=== PATIENT | female | born 1975 | race Caucasian/White ===

== ENCOUNTER 2017-03-18 12:10 | Inpatient (IN) | payer BC ==
[~2017-03-18] VITALS: Ht 165.1 cm; Wt 71.7 kg
[2017-03-18 14:24] VITALS: BP 101/65; RESP 18
[2017-03-18] MEDS ORDERED: HYDROCODONE/APAP (5/325) TAB PO PRN (16:30)
[2017-03-18] MEDS ORDERED: DIPHENHYDRAMINE 25 MG CAP PO PRN (16:30)
[2017-03-18] MEDS ORDERED: ZOLPIDEM 5 MG TAB PO PRN (16:30)
[2017-03-18] MEDS ORDERED: ACETAMINOPHEN 325 MG TAB PO PRN (16:30)
[2017-03-18] MEDS ORDERED: NACL 0.9% 3 ML SYG IV SCH (16:30)
[2017-03-18] MEDS ORDERED: ONDANSETRON 4 MG INJ IV PRN (16:30)
[2017-03-18] MEDS ORDERED: LORAZEPAM 0.5 MG TAB PO PRN (16:30)
[2017-03-18] MEDS ORDERED: HYDROmorphONE 0.5 MG/0.5 ML SYG IV PRN (16:30)
--- NOTE | 2017-03-18 16:39 | RADRPT ---
AMENDMENT: 03/18/2017 5:05:04 PM Stefano Downs M.d In the first sentence of the Findings section, the phrase "by the prominent" should read as "slightl y prominent." PROCEDURE: XR portable chest CLINICAL INDICATION: Chest pain TECHNIQUE: Portable semi upright chest radiograph COMPARISON: None available FINDINGS: By the prominent right heart border, but this could be within normal limits. The cardiac silhouette, mediastinum, and pulmonary giirsh are otherwise unremarkable. Pulmonary vasculature is within normal limits. The lung volumes are within normal limits. The visualized pleural surfaces are unremarkable. The trang g parenchyma is unremarkable. IMPRESSION: 1. Slightly prominent right heart border may be within normal limits. Compare to prior correspondin g imaging studies. RPTAT: TT Physician Lencho Date Time Electronically viewed and signed by Physician Lencho on 03/18/2017 17:12 IVANIA/
[2017-03-18] MEDS ORDERED: HYDROmorphONE 2 MG TAB PO PRN (17:00)
[2017-03-18] MEDS ORDERED: KETOROLAC 15 MG INJ IV PRN (17:00)
[2017-03-18 17:06] LABS: BASOPHIL # 0.1 10^3/ul (0.0-0.1); BASOPHILS % 0.5 % (0.0-2.0); EOSINOPHILS # 0.2 10^3/ul (0.0-0.5); EOSINOPHILS % 1.9 % (0.0-7.0); HEMATOCRIT 38.5 % (37.0-47.0); LYMPHOCYTES # 2.2 10^3/ul (0.8-2.9); LYMPHOCYTES % 20.2 % (15.0-51.0); MEAN CORPUSCULAR HEMOGLOBIN 31.2 pg (29.0-33.0); MEAN CORPUSCULAR HGB CONC 33.8 g/dl (32.0-37.0); MEAN CORPUSCULAR VOLUME 92.3 fl (82.0-101.0); MEAN PLATELET VOLUME 11.7 fl (7.4-10.4); MONOCYTE # 0.6 10^3/ul (0.3-0.9); MONOCYTES % 5.4 % (0.0-11.0); NEUTROPHIL # 7.9 10^3/ul (1.6-7.5); NEUTROPHILS % 71.7 % (39.0-77.0); PLATELET COUNT 187 10^3/UL (140-415); RED BLOOD COUNT 4.17 10^6/ul (4.20-5.40); RED CELL DISTRIBUTION WIDTH 11.8 % (11.5-14.5)
[2017-03-18 17:30] LABS: CALCIUM 8.8 mg/dl (8.4-10.2); CREATININE 0.69 mg/dl (0.44-1.00); POTASSIUM 3.8 mmol/L (3.5-5.1)
[2017-03-18] MEDS: SOD CHLORIDE 0.9% 1,000 ML IV SCH (17:38)
[2017-03-18] MEDS: LEVOFLOXACIN 500MG/D5W (PMX) 100 ML IVPB SCH (17:38)
[2017-03-18 18:34] VITALS: Ht 165.1 cm; Wt 71.7 kg
--- NOTE | 2017-03-18 19:26 | RADRPT ---
Vent Rate: 76 bpm RR Interval: 0 msec WV Interval: 116 msec QRS Duration: 74 msec QT Interval: 394 msec QTC Interval: 443 msec P-R-T [place]: 69 - 30 - 53 degrees Normal sinus rhythm Low voltage QRS Borderline ECG Electronically Signed By: Luis Arboleda [id number]
[2017-03-18 19:32] VITALS: BP 108/55; RESP 18
[2017-03-18 20:27] LABS: ADD UMIC YES; UR ASCORBIC ACID NEGATIVE (NEGATIVE); UR BILIRUBIN (Dip) NEGATIVE (NEGATIVE); UR BLOOD (Dip) 2+ mg/dL (NEGATIVE); UR CLARITY CLEAR (CLEAR); UR COLOR YELLOW (YELLOW); UR GLUCOSE (Dip) NEGATIVE (NEGATIVE); UR KETONES (Dip) NEGATIVE (NEGATIVE); UR LEUKOCYTE ESTERASE (Dip) TRACE Leu/ul (NEGATIVE); UR NITRITE (Dip) NEGATIVE (NEGATIVE); UR RBC 22 /HPF (0-5); UR SPECIFIC GRAVITY (Dip) 1.014 (1.003-1.030); UR SQUAMOUS EPITHELIAL CELL FEW /HPF (FEW); UR TOTAL PROTEIN (Dip) NEGATIVE (NEGATIVE); UR UROBILINOGEN (Dip) NEGATIVE (NEGATIVE)
--- NOTE | 2017-03-18 21:11 | HP ---
DATE OF ADMISSION: 03/18/2017 REASON FOR ADMISSION: The patient is transferred from [facility] for 4 mm kidney stone due to insurance reason. HISTORY OF PRESENT ILLNESS: This is a 41-year-old woman with a past medical history of kidney stone s status post lithotripsy in 1999, with a history of recurrent UTIs and kidney stone, last episode 2 months ago, presented to the [facility] today secondary to right flank pain since last nig ht. The patient said that she was doing fine until last night, she started having right-sided flank pain which was sharp and was radiating to the front, to her vagina. She was also having some diffi culty with urination. This pain improved, but last night, woke her up out of sleep around 1:30. Sh joyce was also having some dysuria, and also noted hematuria and blood clot, which made her worried and came to the emergency department at [facility]. The patient denied any fevers and chills, had some nausea, denied any vomiting. On arrival to ED at [place], patient had a UA that showed 3+ leukocyte esterase, greater than 60 RBCs, greater than [address] W[address]s. [address] was 0[address] of the abdomen and pelvis shows 4 mm nonobstructive right renal calcification. The patient was given Levaq uin, and was transferred to [facility] for insurance reasons. PAST MEDICAL HISTORY: 1. History of kidney stones. 2. Fibromyalgia. MEDICATIONS: No known home medications. ALLERGIES: THE PATIENT HAS MULTIPLE ALLERGIES, ALLERGIC TO PENICILLIN, CEFACLOR, ERYTHROMYCIN, MORP JOHN, SULFAMETHOXAZOLE, TRIMETHOPRIM, PROCHLORPERAZINE. PAST SURGICAL HISTORY: Partial hysterectomy, bilateral shoulder surgery, tubal ligation, tonsillect adam, lithotripsy. SOCIAL HISTORY: Occasionally smokes cigarettes, occasionally drinks alcohol. Currently, is a [employer] student, has 2 daughters in their 20s, lives in [place]. FAMILY HISTORY: None. No history of kidney stones. REVIEW OF SYSTEMS: The patient said that she had fibromyalgia and she had migraines, forgetfu lness. At that time, she was diagnosed with fibromyalgia. Currently is also having some chest pain , left-sided. Denies any shortness of breath, any orthopnea, PND, any lower extremity edema. Denie s any hematemesis, any melena, any bright red per rectum. Has right flank pain, some dysuria, urgen cy. Denies any focal neurological deficit. PHYSICAL EXAMINATION: VITAL SIGNS: Temperature 97.5, pulse 69, respirations are 18, blood pressure 101/65, saturating 97% . GENERAL: Patient is awake, alert, oriented, does not appear to be in any acute distress. HEENT: Pupils equal, round, reactive to light. NECK: Supple, no JVD. HEART: Regular rate and rhythm. LUNGS: Clear to auscultate bilaterally. ABDOMEN: Soft, nontender, positive bowel sounds. GENITOURINARY: Patient has right CVA tenderness. EXTREMITIES: No clubbing, cyanosis or edema. DIAGNOSTIC DATA: From [facility] showed sodium of , potassium 4.3, chloride 102, bica rbonate 26, BUN of 12, creatinine 0.83, albumin 3.5. White count of 18.2. UA showed 3+ leukocytes, yellow, greater than 3+ blood, greater than 60 RBCs, greater than 100 WBCs, moderate yeast. ASSESSMENT AND PLAN: This is a 41-year-old female presenting with: 1. Right flank tenderness and leukocytosis, cannot rule out could be secondary to pyelonephritis. 2. Renal colic with 4 mm nonobstructive renal calcification. 3. Chest pain, unlike acute coronary syndrome; however, we will check for troponin, EKG. 4. Left adnexal cyst seen on the CT scan, 2.3 to 1.7 cm. 5. Leukocytosis secondary to #1. 6. History of fibromyalgia. PLAN: At this period of time, patient is admitted to med-surg. We will give the patient IV pain me dication, Toradol and pain medication. We will start the patient on IV Levaquin. UA, urine culture will be sent. We will get CBC, BMP now. We consulted urology, Dr. Cm, to see the patient. W e will get also a kidney ultrasound. Rest of the treatment will depend on the patient's hospitaliza tion course and with the patient. Dictated By: MERON SPANN/MARY KAY Conf#: [id number] DID#: [id number] CC: HIWOT GALLEGOS MD;*EndCC*
[2017-03-19 01:25] VITALS: BP 100/56; RESP 18
[2017-03-19 05:14] LABS: BASOPHILS % 0.5 % (0.0-2.0); EOSINOPHILS # 0.2 10^3/ul (0.0-0.5); EOSINOPHILS % 2.8 % (0.0-7.0); HEMATOCRIT 38.1 % (37.0-47.0); HEMOGLOBIN 12.5 g/dl (12.0-16.0); LYMPHOCYTES # 2.4 10^3/ul (0.8-2.9); LYMPHOCYTES % 28.7 % (15.0-51.0); MEAN CORPUSCULAR HEMOGLOBIN 30.6 pg (29.0-33.0); MEAN CORPUSCULAR HGB CONC 32.8 g/dl (32.0-37.0); MEAN CORPUSCULAR VOLUME 93.2 fl (82.0-101.0); MEAN PLATELET VOLUME 11.7 fl (7.4-10.4); MONOCYTE # 0.7 10^3/ul (0.3-0.9); MONOCYTES % 8.1 % (0.0-11.0); NEUTROPHIL # 5.1 10^3/ul (1.6-7.5); NEUTROPHILS % 59.5 % (39.0-77.0); PLATELET COUNT 188 10^3/UL (140-415); RED BLOOD COUNT 4.09 10^6/ul (4.20-5.40); RED CELL DISTRIBUTION WIDTH 11.7 % (11.5-14.5); WHITE BLOOD COUNT 8.5 10^3/ul (4.8-10.8)
[2017-03-19] MEDS: SOD CHLORIDE 0.9% 1,000 ML IV SCH ×2 (05:38→18:58)
[2017-03-19 05:45] LABS: ALBUMIN 3.3 g/dl (3.3-4.9); ALBUMIN/GLOBULIN RATIO 0.97; BILIRUBIN,INDIRECT 0.4 mg/dl (0-1.1); BILIRUBIN,TOTAL 0.4 mg/dl (0.2-1.3); CREATININE 0.81 mg/dl (0.44-1.00); POTASSIUM 4.5 mmol/L (3.5-5.1); TOTAL PROTEIN 6.7 g/dl (6.1-8.1)
[2017-03-19] MEDS: PANTOPRAZOLE (EC) 40 MG TAB PO SCH (06:17)
[2017-03-19 08:06] VITALS: BP 104/57; RESP 18
[2017-03-19] MEDS ORDERED: HYDROmorphONE 1 MG/ML SYG IV STA (09:47)
--- NOTE | 2017-03-19 10:55 | PN ---
Date/Time of Note Date/Time of Note DATE: 03/19/17 TIME: 10:55 Assessment/Plan VTE Prophylaxis VTE Prophylaxis Intervention: SCD's Lines/Catheters IV [facility]from [facility] Peripheral IV Urinary Cath still in place: No Assessment/Plan Chief Complaint/Hosp Course 1 Right flank tenderness and leukocytosis, 2. Renal colic with 4 mm nonobstructive renal calcification. 3. Chest pain, unlike acute coronary syndrome; negative wup 4. Left adnexal cyst seen on the CT scan, 2.3 to 1.7 cm. 5. Leukocytosis secondary to #1. 6. History of fibromyalgia. Recs - Pain control with iv dilaudid/toradol - c/w iv levaquin - c.w iv fluids - Strain urine - f/u U cx and bld cx - per urology recs - GI/DVT prophylaxsis Problems: Subjective 24 Hr Interval Summary Free Text/Dictation Pt still haiving pain in flank Seen by Dr Cm +hematuira Exam/Review of Systems Vital Signs Vitals Vital Signs Date Time Temp Pulse Resp B/P Pulse Ox O2 Delivery O2 Flow Rate FiO2 03/19/17 08:06 98.3 77 18 104/57 97 Intake and Output 03/18/17 03/18/17 03/19/17 15:00 23:00 07:00 Intake Total 660 ml Output Total 150 ml Balance 510 ml Exam GENERAL: Patient is awake, alert, oriented, does not appear to be in any acute distress. HEENT: Pupils equal, round, reactive to light. NECK: Supple, no JVD. HEART: Regular rate and rhythm. LUNGS: Clear to auscultate bilaterally. ABDOMEN: Soft, nontender, positive bowel sounds. GENITOURINARY: Patient has right CVA tenderness. EXTREMITIES: No clubbing, cyanosis or edema. Results Result Diagram: 03/19/17 0439 03/19/17 0439 Results 24 hrs Laboratory Tests Test 03/18/17 16:10 03/18/17 16:45 03/18/17 19:24 03/19/17 04:39 Troponin I < 0.012 White Blood Count 11.0 H 8.5 # Red Blood Count 4.17 L 4.09 L Hemoglobin 13.0 12.5 Hematocrit 38.5 38.1 Mean Corpuscular Volume 92.3 93.2 Mean Corpuscular Hemoglobin 31.2 30.6 Mean Corpuscular Hemoglobin Concent 33.8 32.8 Red Cell Distribution Width 11.8 11.7 Platelet Count 187 188 Mean Platelet Volume 11.7 H 11.7 H Neutrophils % 71.7 59.5 Lymphocytes % 20.2 28.7 Monocytes % 5.4 8.1 Eosinophils % 1.9 2.8 Basophils % 0.5 0.5 Nucleated Red Blood Cells % 0.0 0.0 Neutrophils # 7.9 H 5.1 Lymphocytes # 2.2 2.4 Monocytes # 0.6 0.7 Eosinophils # 0.2 0.2 Basophils # 0.1 0.0 Nucleated Red Blood Cells # 0.0 0.0 Sodium Level 136 141 Potassium Level 3.8 4.5 Chloride Level 105 107 Carbon Dioxide Level 23 29 Anion Gap 12 10 Blood Urea Nitrogen 10 9 Creatinine 0.69 0.81 Glucose Level 120 97 Calcium Level 8.8 9.0 Urine Color YELLOW Urine Clarity CLEAR Urine pH 7.0 Urine Specific [place] 1.014 Urine Ketones NEGATIVE Urine Nitrite NEGATIVE Urine Bilirubin NEGATIVE Urine Urobilinogen NEGATIVE Urine Leukocyte Esterase TRACE A Urine Microscopic RBC 22 H Urine Microscopic WBC 3 Urine Squamous Epithelial Cells FEW Urine Hemoglobin 2+ H Urine Glucose NEGATIVE Urine Total Protein NEGATIVE Total Bilirubin 0.4 Direct Bilirubin 0.00 Indirect Bilirubin 0.4 Aspartate Amino Transf (AST/SGOT) 16 Alanine Aminotransferase (ALT/SGPT) 21 Alkaline Phosphatase 47 Total Protein 6.7 Albumin 3.3 Globulin 3.40 H Albumin/Globulin Ratio 0.97 Medications Medications Current Medications Sodium Chloride (NS) 1,000 ml @ 75 mls/hr [id number] IV Last administered on t 17:38; Admin Dose 75 MLS/HR; Start 03/18/17 at 16:18 Ondansetron HCl (Zofran Inj) 4 mg Q6H PRN IV NAUSEA AND/OR VOMITING; Start at 16:30 Acetaminophen (Tylenol Tab) 650 mg Q6H PRN PO PAIN LEVEL 1-3 OR FEVER; Start 03/18/17 at 16:30 Acetaminophen/ Hydrocodone Bitart ([place] (5/325)) 1 tab Q6H PRN PO MODERATE PAIN LEVEL 4-6; Start 03/18/17 at 16:30 Magnesium Hydroxide (Milk Of Mag) 30 ml DAILY PRN PO CONSTIPATION; Start 03/18 at 16:30 Zolpidem Tartrate (Ambien) 5 mg QHS PRN PO SLEEP; Start 03/18/17 at 16:30 Pantoprazole (Protonix Tab) 40 mg DAILY@06 PO Last administered on 03/19/17 06:17; Admin Dose 40 MG; Start 03/19/17 at 06:00 Lorazepam 0.5 mg 0.5 mg TID PRN PO ANXIETY; Start 03/18/17 at 16:30 Levofloxacin/ Dextrose (Levaquin 500mg/ D5W 100 ml (Pmx)) 100 ml @ 100 mls/hr Q24H IVPB Last administered on 03/18/17 17:38; Admin Dose 100 MLS/HR; Start 03/18/17 at 16:30 Diphenhydramine HCl (Benadryl) 25 mg Q8 PRN PO ITCHING; Start 03/18/17 at 16: 30 Ketorolac Tromethamine (Toradol) 15 mg Q6H PRN IV PAIN; Start 03/18/17 at 17: 00; Stop 03/21/17 at 16:59 Hydromorphone HCl (Dilaudid) 1 mg Q3H PRN IV PAIN LEVEL 7-10; Start 03/19/17 at 10:00 MERON RENE MD Mar 19, 2017 10:55
[2017-03-19] MEDS: HYDROmorphONE 1 MG/ML SYG IV PRN ×4 (13:13→19:34)
[2017-03-19 14:00] VITALS: BP 96/57; RESP 18
[2017-03-19] MEDS: LEVOFLOXACIN 500MG/D5W (PMX) 100 ML IVPB SCH (16:51)
--- NOTE | 2017-03-19 16:51 | HP ---
DATE OF ADMISSION: 03/18/2017 REQUESTING PHYSICIAN: Dr. Brent Gallegos and Dr. Amelia Rene HISTORY OF PRESENT ILLNESS: This is a 41-year-old female who initially presented to [facility] complaining of right-sided abdominal pain with nausea and vomiting. She underwent a CT scan of the abdomen and pelvis and that showed a 4 mm nonobstructing stone in the right kidney. The patient was transferred to [facility] because of her insurance. The patient states that she has had lithotripsy to stones in the right kidney in 2009, and she has had recurrent urinary tract infection and she has passed also stones. The patient presently is comfortable. She does have pain in the right flank area. She did notice some blood when she wiped herself yesterday after she does urinate; however, her urine this morning appears to be clear. She just urinated in the bathroom and the urine is clear. The patient does have mild dysuria. PAST MEDICAL HISTORY: Includes a history of fibromyalgia. PAST SURGICAL HISTORY: History of kidney stone, status post extracorporeal shock wave lithotripsy in 2009. The patient also has had partial hysterectomy, bilateral shoulder surgery, she did have tubal ligation and she has had tonsillectomy and lithotripsy. She is a 4, para 2, two miscarriages and 2 normal deliveries. SOCIAL HISTORY: She smokes occasionally and drinks occasionally. She denies having any drug problems. PHYSICAL EXAMINATION: GENERAL: Reveals a 41-year-old female who presently is in no acute distress. She does have, however, right flank tenderness. VITAL SIGNS: Temperature is 98.3, pulse 77, respiration 18, blood pressure 104/ 57. HEAD AND NECK: Unremarkable. There is no cervical tenderness. LUNGS: The air flow is normal and no wheezing. ABDOMEN: Soft. She does have a scar from the partial hysterectomy and the patient has right flank tenderness. PELVIC: Revealed no mass and no tenderness and no discharge. EXTREMITIES: Normal. LABORATORY DATA: Her CBC on admission showed a white count of 11,000, today is 8.5. The hemoglobin is 13.0. Today is 12.5. The BUN is 9, creatinine 0.81. Electrolytes are normal. The urinalysis shows 2+ occult blood. Urine culture is pending and the patient just had a KUB, we will look at it. IMAGING: I did review the CT scan from [facility]. There is no ureteral stone and the stone in the right kidney that measures 4 mm is not obstructing and therefore could not be the reason for her pain. She does have a pinpoint stone in the left kidney also that is not symptomatic. One has to rule out urinary tract infection. The urine was sent for culture and the patient is feeling better. She is covered with Levaquin . Impression: Most likely the patient has urinary tract infection or she may have passed the stone. RECOMMENDATION: 1. continue straining her urine just in case she passed the stone and that is why it did not show on the CT scan. 2. Continue her antibiotic and if the plan is to discharge her, she could go home with the antibiotic and follow up as an outpatient. Dictated By: ALBINA QUEEN MD BB/NTS Conf#: [id number] DID#: [id number] CC: BRENT GALLEGOS MD; AMELIA RENE;*EndCC* MTDD
--- NOTE | 2017-03-19 16:51 | RADRPT ---
PROCEDURE: XR Abdomen. CLINICAL INDICATION: Ureteral stone. TECHNIQUE: AP abdomen x-ray. COMPARISON: None. FINDINGS: There is a nonspecific bowel gas pattern without evidence of obstruction. Scattered stool throughout the colon. There is a 2 mm calcification projecting in the expected region of the lower pole of the right kidne y. There is no acute osseous abnormality. The visualized lung bases are clear. IMPRESSION: 2 mm calcification projecting in the expected region of the lower pole of the right kidney. RPTAT: AAEE Juan Cramer Physician Date Time Electronically viewed and signed by Juan Cramer Physician on 03/19/2017 09:58 PH/
[2017-03-19] MEDS: MAGNESIUM HYDROXIDE 30ML CUP PO PRN (17:06)
[2017-03-19] MEDS ORDERED: BISACODYL 10 MG SUPP PR PRN (20:30)
[2017-03-19] MEDS ORDERED: NA PHOSPHATE/BIPHOS 133 ML ENEMA PR PRN (20:30)
[2017-03-19 20:57] VITALS: BP 104/63; RESP 20
[2017-03-20] MEDS ORDERED: HYDROmorphONE 2 MG TAB PO PRN (01:30)
[2017-03-20] MEDS: MAGNESIUM HYDROXIDE 30ML CUP PO PRN (01:33)
[2017-03-20 02:10] VITALS: BP 120/68; RESP 18
[2017-03-20 08:13] VITALS: BP 110/69; RESP 18
--- NOTE | 2017-03-20 08:45 | CONS ---
Date/Time of Note Date/Time of Note DATE: 03/20/17 TIME: 08:40 Consult Date/Type/Reason Admit Date/Time Mar 18, 2017 at 13:30 Initial Consult Date March 19, 2017 Type of Consultation: Urology Reason for Consultation Kidney stone and possible urinary tract infection Ordering Provider: HIWOT GALLEGOS MD Subjective Patient stated that she is not feeling well that she has constipation diarrhea and nausea and that they could not start an IV on her. Objective Vital Signs Date Time Temp Pulse Resp B/P Pulse Ox O2 Delivery O2 Flow Rate FiO2 03/20/17 08:13 98.1 62 18 110/69 99 Intake and Output 03/19/17 03/19/17 03/20/17 15:00 23:00 07:00 Intake Total 775 ml Balance 775 ml Exam Patient is sleepy and drowsy, states that her abdomen hurts Results/Medications Result Diagram: 03/19/17 0439 03/19/17 0439 Medications Current Medications Sodium Chloride (NS) 1,000 ml @ 75 mls/hr [id number] IV Last administered on 17:38; Admin Dose 75 MLS/HR; Start 03/18/17 at 16:18 Ondansetron HCl (Zofran Inj) 4 mg Q6H PRN IV NAUSEA AND/OR VOMITING Last administered on 03/19/17 17:05; Admin Dose 4 MG; Start 03/18/17 at 16:30 Acetaminophen (Tylenol Tab) 650 mg Q6H PRN PO PAIN LEVEL 1-3 OR FEVER; Start 03/18/17 at 16:30 Acetaminophen/ Hydrocodone Bitart ([place] (5/325)) 1 tab Q6H PRN PO MODERATE PAIN LEVEL 4-6; Start 03/18/17 at 16:30 Magnesium Hydroxide (Milk Of Mag) 30 ml DAILY PRN PO CONSTIPATION Last administered on 03/20/17 01:33; Admin Dose 30 ML; Start 03/18/17 at 16:30 Zolpidem Tartrate (Ambien) 5 mg QHS PRN PO SLEEP; Start 03/18/17 at 16:30 Pantoprazole (Protonix Tab) 40 mg DAILY@06 PO Last administered on 03/19/17 06:17; Admin Dose 40 MG; Start 03/19/17 at 06:00 Lorazepam 0.5 mg 0.5 mg TID PRN PO ANXIETY; Start 03/18/17 at 16:30 Levofloxacin/ Dextrose (Levaquin 500mg/ D5W 100 ml (Pmx)) 100 ml @ 100 mls/hr Q24H IVPB Last administered on 03/19/17 16:51; Admin Dose 100 MLS/HR; Start 03/18/17 at 16:30 Diphenhydramine HCl (Benadryl) 25 mg Q8 PRN PO ITCHING; Start 03/18/17 at 16: 30 Ketorolac Tromethamine (Toradol) 15 mg Q6H PRN IV PAIN; Start 03/18/17 at 17: 00; Stop 03/21/17 at 16:59 Hydromorphone HCl (Dilaudid) 1 mg Q3H PRN IV PAIN LEVEL 7-10 Last administered on 03/19/17 19:34; Admin Dose 1 MG; Start 03/19/17 at 10:00 Sodium Biphosphate/ Sodium Phosphate (Fleet Enema) 133 ml DAILY PRN [place] CONSTIPATION Last administered on 03/19/17 21:28; Admin Dose 133 ML; Start at 20:30 Bisacodyl (Dulcolax Supp) 10 mg DAILY PRN [place] CONSTIPATION; Start 03/19/17 at 20:30 Hydromorphone HCl (Dilaudid) 2 mg Q4H PRN PO PAIN Last administered on 01:55; Admin Dose 2 MG; Start 03/20/17 at 01:30 Assessment/Plan Chief Complaint/Hosp Course 41-year-old female initially presented to [place] emergency room because of abdominal pain. She was transferred to [facility] because of her insurance. CT scan at [place] showed a 4 mm stone in the right kidney and that is not obstructing and one pinpoint stone in the left kidney that is of no clinical importance. Urine culture so far showed no growth. Patient did have history of kidney stones. She underwent eswl in 2009. Presently I do not think she has any pain from a kidney stone or ureteral stone. the suspicious was she may have a urinary tract infection but so far the urine culture has been negative, and that could be because of the antibiotic that she has been receiving. From a urological standpoint there is no plan for any surgical intervention and she could be placed on oral antibiotic and pain medication if needed and followed up as an outpatient with her primary care physician. Problems: ALBINA QUEEN MD Mar 20, 2017 08:45
[2017-03-20] MEDS: PANTOPRAZOLE (EC) 40 MG TAB PO SCH (10:49)
[2017-03-20] MEDS: SOD CHLORIDE 0.9% 1,000 ML IV SCH ×3 (10:50→22:41)
[2017-03-20] MEDS: HYDROmorphONE 1 MG/ML SYG IV PRN (13:19)
[2017-03-20 13:45] VITALS: BP 119/69; RESP 20
--- NOTE | 2017-03-20 15:58 | PN ---
Date/Time of Note Date/Time of Note DATE: 03/20/17 TIME: 15:55 Assessment/Plan VTE Prophylaxis VTE Prophylaxis Intervention: ambulation Lines/Catheters IV Catheter Type (from Nrs): [place] Urinary Cath still in place: No Assessment/Plan Chief Complaint/Hosp Course 1 Right flank tenderness and leukocytosis, 2. Renal colic with 4 mm nonobstructive renal calcification. 3. Chest pain, unlike acute coronary syndrome; 4. Left adnexal cyst seen on the CT scan, 2.3 to 1.7 cm. 5. History of fibromyalgia. 6. Anxiety Problems: Assessment/Plan 1. pain control 2. Stop IV Subjective 24 Hr Interval Summary Constitutional: chills, poor po Gastrointestinal: pain Genitourinary: flank pain (right) Neurologic: headache Psychological: anxiety Exam/Review of Systems Vital Signs Vitals Vital Signs Date Time Temp Pulse Resp B/P Pulse Ox O2 Delivery O2 Flow Rate FiO2 03/20/17 13:45 98.7 85 20 119/69 95 Intake and Output 03/19/17 03/19/17 03/20/17 15:00 23:00 07:00 Intake Total 775 ml Balance 775 ml Results Result Diagram: 03/19/17 0439 03/19/17 0439 Medications Medications Current Medications Sodium Chloride (NS) 1,000 ml @ 75 mls/hr [id number] IV Last administered on 13:25; Admin Dose 75 MLS/HR; Start 03/18/17 at 16:18 Ondansetron HCl (Zofran Inj) 4 mg Q6H PRN IV NAUSEA AND/OR VOMITING Last administered on 03/19/17 17:05; Admin Dose 4 MG; Start 03/18/17 at 16:30 Acetaminophen (Tylenol Tab) 650 mg Q6H PRN PO PAIN LEVEL 1-3 OR FEVER; Start 03/18/17 at 16:30 Acetaminophen/ Hydrocodone Bitart ([place] (5/325)) 1 tab Q6H PRN PO MODERATE PAIN LEVEL 4-6; Start 03/18/17 at 16:30 Magnesium Hydroxide (Milk Of Mag) 30 ml DAILY PRN PO CONSTIPATION Last administered on 03/20/17 01:33; Admin Dose 30 ML; Start 03/18/17 at 16:30 Zolpidem Tartrate (Ambien) 5 mg QHS PRN PO SLEEP; Start 03/18/17 at 16:30 Pantoprazole (Protonix Tab) 40 mg DAILY@06 PO Last administered on 03/19/17 06:17; Admin Dose 40 MG; Start 03/19/17 at 06:00 Lorazepam 0.5 mg 0.5 mg TID PRN PO ANXIETY; Start 03/18/17 at 16:30 Levofloxacin/ Dextrose (Levaquin 500mg/ D5W 100 ml (Pmx)) 100 ml @ 100 mls/hr Q24H IVPB Last administered on 03/19/17 16:51; Admin Dose 100 MLS/HR; Start 03/18/17 at 16:30 Diphenhydramine HCl (Benadryl) 25 mg Q8 PRN PO ITCHING; Start 03/18/17 at 16: 30 Ketorolac Tromethamine (Toradol) 15 mg Q6H PRN IV PAIN; Start 03/18/17 at 17: 00; Stop 03/21/17 at 16:59 Sodium Biphosphate/ Sodium Phosphate (Fleet Enema) 133 ml DAILY PRN [place] CONSTIPATION Last administered on 03/19/17 21:28; Admin Dose 133 ML; Start at 20:30 Bisacodyl (Dulcolax Supp) 10 mg DAILY PRN [place] CONSTIPATION; Start 03/19/17 at 20:30 Hydromorphone HCl (Dilaudid) 2 mg Q4H PRN PO PAIN Last administered on 01:55; Admin Dose 2 MG; Start 03/20/17 at 01:30 CATHY OLIVO Mar 20, 2017 15:57
[2017-03-20] MEDS: LEVOFLOXACIN 500MG/D5W (PMX) 100 ML IVPB SCH ×2 (16:30→19:54)
--- NOTE | 2017-03-20 18:19 | RADRPT ---
PROCEDURE: Retroperitoneal ultrasound. CLINICAL INDICATION: Right-sided flank pain TECHNIQUE: [place]otti scale and color doppler ultrasound images of the retroperitoneum, kidneys, urinary bladder COMPARISON: No prior studies are available for comparison. FINDINGS: Kidneys: Right length (cm) : 10.4 Left length (cm) : 10.8 Right cortical thickness: Normal. Left cortical thickness: Normal. Echogenicity: Normal bilaterally. Hydronephrosis: None. Renal calculi: Possible 5 mm nonobstructive calculus of the right kidney. Focal lesions: None. Free fluid/ascites: None. Abdominal aorta: Not visualized by the pattern ruler. Bladder: No focal lesions. Other findings: None. IMPRESSION: Possible 5 mm nonobstructive calculus of the right kidney. No hydronephrosis. RPTAT: AADD .Johan Hager MD, MD Date Time Electronically viewed and signed by .Johan Hager MD, on 03/20/2017 18:19 .B/
[2017-03-20 19:30] LABS: BARBITURATES Negative (NEGATIVE); BENZODIAZEPINES Negative (NEGATIVE); CANNABINOIDS Negative (NEGATIVE); COCAINE Negative (NEGATIVE)
[2017-03-20] MEDS ORDERED: DOCUSATE SODIUM 100 MG CAP PO PRN (19:30)
[2017-03-20 19:32] LABS: OPIATES Positive (NEGATIVE)
[2017-03-20 19:35] VITALS: BP 118/72; RESP 18
[2017-03-20] MEDS ORDERED: HYDROmorphONE 1 MG/ML SYG IV PRN (21:15)
[2017-03-20] MEDS ORDERED: AL HYDROX/MG HYDROX/SIMETH 30 ML CUP PO PRN (21:15)
[2017-03-20] MEDS: METOCLOPRAMIDE 10 MG INJ IV PRN (21:26)
[2017-03-21] MEDS: PANTOPRAZOLE (EC) 40 MG TAB PO SCH (05:55)
[2017-03-21 08:06] VITALS: BP 99/57; RESP 18
[2017-03-21] MEDS: MAGNESIUM HYDROXIDE 30ML CUP PO PRN (08:48)
[2017-03-21] MEDS: METOCLOPRAMIDE 10 MG INJ IV PRN (08:48)
[2017-03-21 12:30] LABS: BASOPHILS % 0.3 % (0.0-2.0); EOSINOPHILS # 0.2 10^3/ul (0.0-0.5); EOSINOPHILS % 1.9 % (0.0-7.0); HEMOGLOBIN 13.3 g/dl (12.0-16.0); LYMPHOCYTES # 2.6 10^3/ul (0.8-2.9); LYMPHOCYTES % 28.9 % (15.0-51.0); MEAN CORPUSCULAR HEMOGLOBIN 30.5 pg (29.0-33.0); MEAN CORPUSCULAR HGB CONC 33.3 g/dl (32.0-37.0); MEAN CORPUSCULAR VOLUME 91.7 fl (82.0-101.0); MEAN PLATELET VOLUME 11.5 fl (7.4-10.4); MONOCYTE # 0.5 10^3/ul (0.3-0.9); NEUTROPHIL # 5.6 10^3/ul (1.6-7.5); NEUTROPHILS % 62.5 % (39.0-77.0); PLATELET COUNT 222 10^3/UL (140-415); RED BLOOD COUNT 4.36 10^6/ul (4.20-5.40); RED CELL DISTRIBUTION WIDTH 11.6 % (11.5-14.5)
[2017-03-21 12:40] LABS: CALCIUM 9.3 mg/dl (8.4-10.2); CREATININE 0.91 mg/dl (0.44-1.00); POTASSIUM 4.2 mmol/L (3.5-5.1)
--- NOTE | 2017-03-21 13:06 | PDOCDIS ---
Discharge Instructions DIAGNOSIS Discharge Diagnosis UTI, right kidney stone CONDITION Patient Condition: Stable HOME CARE INSTRUCTIONS: Special Diet: Lactulose free FOLLOW UP/APPOINTMENTS Follow-up Plan PCP 1 -2 weeks SCHOOL/WORK RELEASE May return to School/Work with: No Restrictions CATHY OLIVO Mar 21, 2017 13:06
[2017-03-21] MEDS ORDERED: IBUP-1542 PO (13:08)
--- NOTE | 2017-03-21 13:11 | DS ---
Date/Time of Note Date/Time of Note DATE: 03/21/17 TIME: 13:11 Discharge Summary Admission/Discharge Info Admit Date/Time Mar 18, 2017 at 13:30 Discharge Date/Time Discharge Diagnosis UTI, right kidney stone Patient Condition: Stable Consults Dr Cm urology Hospital Course This is a 41-year-old woman with a past medical history of kidney stones status post lithotripsy in 1999, with a history of recurrent UTIs and kidney stone, last episode 2 months ago, presented to the [facility] today secondary to right flank pain since last night. The patient said that she was doing fine until last night, she started having right-sided flank pain which was sharp and was radiating to the front, to her vagina. She was also having some difficulty with urination. This pain improved, but last night, woke her up out of sleep around 1:30. She was also having some dysuria, and also noted hematuria and blood clot, which made her worried and came to the emergency department at [facility]. The patient denied any fevers and chills, had some nausea, denied any vomiting. On arrival to ED at [place], patient had a UA that showed 3+ leukocyte esterase, greater than 60 RBCs, greater than 30 WBCs. Creatinine was 0.83. CT of the abdomen and pelvis shows 4 mm nonobstructive right renal calcification. The patient was given Levaquin, and was transferred to [facility] for insurance reasons. PAST MEDICAL HISTORY: 1. History of kidney stones. 2. Fibromyalgia. Impression 1 Right flank tenderness and leukocytosis, 2. Renal colic with 4 mm nonobstructive renal calcification. 3. Chest pain, unlike acute coronary syndrome; 4. Left adnexal cyst seen on the CT scan, 2.3 to 1.7 cm. 5. History of fibromyalgia. 6. Anxiety During hospaitalization pain was controlled, pt was continued on antibiotics and after final US that showed 5 mm non obstructive stone pt was discharged home. Recommended hormone replacement therapy, vit D check in outpatient setting and managing frequent UTIs. Home Meds Active Scripts Ibuprofen* (Ibuprofen*) 600 Mg Tablet, 600 MG PO Q8 Y for PAIN LEVEL 6-10 for 10 Days, TAB Prov:CATHY OLIVO 03/21/17 Follow-up Plan PCP 1 -2 weeks Primary Care Provider Not On Staff Doctor Time spent on discharge: < 30 minutes Pending Labs Laboratory Tests Test 03/20/17 17:15 03/21/17 11:34 03/21/17 11:35 Urine Opiates Screen Positive (NEGATIVE) Urine Barbiturates Negative (NEGATIVE) Urine Amphetamines Screen Negative (NEGATIVE) Urine Benzodiazepines Screen Negative (NEGATIVE) Urine Cocaine Screen Negative (NEGATIVE) Urine Cannabinoids Negative (NEGATIVE) White Blood Count 9.010^3/ul (4.8-10.8) Red Blood Count 4.3610^6/ul (4.20-5.40) Hemoglobin 13.3g/dl (12.0-16.0) Hematocrit 40.0% (37.0-47.0) Mean Corpuscular Volume 91.7fl (82.0-101.0) Mean Corpuscular Hemoglobin 30.5pg (29.0-33.0) Mean Corpuscular Hemoglobin Concent 33.3g/dl (32.0-37.0) Red Cell Distribution Width 11.6% (11.5-14.5) Platelet Count 72747^3/UL (140-415) Mean Platelet Volume 11.5fl (7.4-10.4) Neutrophils % 62.5% (39.0-77.0) Lymphocytes % 28.9% (15.0-51.0) Monocytes % 6.0% (0.0-11.0) Eosinophils % 1.9% (0.0-7.0) Basophils % 0.3% (0.0-2.0) Nucleated Red Blood Cells % 0.0/100WBC (0.0-0.0) Neutrophils # 5.610^3/ul (1.6-7.5) Lymphocytes # 2.610^3/ul (0.8-2.9) Monocytes # 0.510^3/ul (0.3-0.9) Eosinophils # 0.210^3/ul (0.0-0.5) Basophils # 0.010^3/ul (0.0-0.1) Nucleated Red Blood Cells # 0.010^3/ul (0.0-0.0) Sodium Level 139mmol/L (135-144) Potassium Level 4.2mmol/L (3.5-5.1) Chloride Level 104mmol/L (97-110) Carbon Dioxide Level 26mmol/L (21-31) Anion Gap 13 (8-16) Blood Urea Nitrogen 10mg/dl (7-20) Creatinine 0.91mg/dl (0.44-1.00) Glucose Level 94mg/dl (70-220) Calcium Level 9.3mg/dl (8.4-10.2) CATHY OLIVO Mar 21, 2017 13:11
== END 2017-03-21 14:10 | disposition home or self-care (01) | DRG 694 ==
LOC: MS1 13:30
PROVIDERS: ADMIT Internal Medicine Nephrology; ATTEND Internal Medicine Nephrology
DX: N20.0 Calculus of kidney (principal); N39.0 Urinary tract infection, site not specified; R07.9 Chest pain, unspecified
CPT/HCPCS: 71010; 74000; 76775; 80048; 80053; 80307; 81001; 84484; 85025; 87040; 87086; 93005; J1170; J1885; J1956; J2405; J2765; J7030

== ENCOUNTER 2017-08-26 09:36 | Day surgery (SDC) | END 2017-08-26 18:55 | disposition home or self-care (01) ==

== ENCOUNTER 2018-06-14 10:57 | Day surgery (SDC) | payer OTHER ==
[2018-06-10 10:10] VITALS: BMI 26.7
[~2018-06-14] VITALS: Ht 165.1 cm; Wt 74.7 kg
[2018-06-14] VITALS (18 sets, daily range): BP systolic 100–149; BP diastolic 66–109; PULSE 68–120; RESP 10–19; Ht 165.1 cm; Wt 74.7 kg
[~2018-06-14 10:57] MED LIST: PANT40TA3 PO; SOD CHLORIDE 0.9% 1,000 ML IV SCH
[2018-06-14] MEDS ORDERED: FENTAnyl 50 MCG/ML VIAL ONE (11:40)
[2018-06-14] MEDS ORDERED: MIDAZOLAM 1 MG/ML 2 ML INJ ONE (11:51)
--- NOTE | 2018-06-14 12:10 | PREAC ---
Date/Time of Note Date/Time of Note DATE: 06/14/18 TIME: 12:08 Anesthesia Eval and Record Evaluation Time Pre-Procedure Interview DATE: 06/14/18 TIME: 12:08 Age 42 Sex female NPO: 8 hrs Preoperative diagnosis gallstones Planned procedure lap ahsan Past Medical History Past Medical History: Includes Renal: Other (renal stones) GI: GERD Psych: Depression, Anxiety, Other (extremely dramatic and negative affect) Surgery & Anesthesia Issues Other issues (extremely dramatic and negative affect) Meds Anticoagulation: No Beta Sita within 24 hr: No Reason Beta Sita not given: Pt. not on B-Sita Reported Medications Pantoprazole* (Protonix*) 40 Mg Tablet.dr, 40 MG PO DAILY, TAB 08/26/17 Current Medications Sodium Chloride 1,000 ml @ 75 mls/hr [id number] IV ; Start 06/14/18 at 06:00; Stop 06/14/18 at 18:00 Meds reviewed: Yes Allergies Coded Allergies: Penicillins (Verified Allergy, Unknown, 06/14/18) Sulfa (Sulfonamide Antibiotics) (Verified Allergy, Unknown, 06/14/18) cefaclor (Verified Allergy, Unknown, 06/14/18) erythromycin base (Verified Allergy, Unknown, 06/14/18) morphine (Verified Allergy, Unknown, 06/14/18) prochlorperazine (Verified Allergy, Unknown, 06/14/18) trimethoprim (Verified Allergy, Unknown, 06/14/18) Allergies Reviewed: Yes Labs/Studies Labs Reviewed: Reviewed by anesthesiologist test: Negative Pre-procedure Exam Last vitals Vital Signs Date Temp Pulse Resp B/P (MAP) Pulse Ox O2 O2 Flow FiO2 Time Delivery Rate 06/14/18 98.1 82 16 122/89 100 Room Air 11:31 (100) Airway: Adequate mouth opening, Adequate thyromental dist Mallampati: Mallampati III Teeth: Normal Lung: Normal Heart: Normal ASA Physical Status ASA physical status: 2 Emergency: None Planned Anesthetic General/MAC: ETT Planned Pain Management Single shot nerve block, Parenteral pain med, Local by surgeon Pre-operative Attestations Prior to commencing anesthesia and surgery, the patient was re-evaluated, there was verification of: *The patient's identity *The results of appropriate recent lab work and preoperative vital signs *The above evaluation not changing prior to induction *Anesthetic plan, risk benefits, alternative and complications discussed with patient/family; questions answered; patient/family understands, accepts and wishes to proceed. MASOOD MARTIN MD Jun 14, 2018 12:10
[2018-06-14] MEDS ORDERED: MEPERIDINE 25 MG INJ IV PRN (12:30)
[2018-06-14] MEDS ORDERED: LEVALBUTEROL (NEB) 1.25 MG/0.5 ML AMP HHN PRN (12:30)
[2018-06-14] MEDS ORDERED: KETOROLAC 30 MG INJ IV PRN ×2 (12:30→15:30)
[2018-06-14] MEDS ORDERED: LABETALOL HCL 20MG INJ IV PRN (12:30)
[2018-06-14] MEDS ORDERED: MIDAZOLAM 1 MG/ML 2 ML INJ IV PRN (12:30)
[2018-06-14] MEDS ORDERED: ONDANSETRON 4 MG INJ IV PRN ×2 (12:30→15:30)
[2018-06-14] MEDS ORDERED: hydrALAzine 20 MG INJ IV PRN (12:30)
[2018-06-14] MEDS ORDERED: FENTAnyl 50 MCG/ML VIAL IV PRN ×2 (12:30)
[2018-06-14] MEDS ORDERED: HALOPERIDOL 5 MG INJ IV PRN (12:30)
[2018-06-14] MEDS ORDERED: DIPHENHYDRAMINE 50 MG INJ IV PRN (12:30)
[2018-06-14] MEDS ORDERED: HYDROmorphONE 1 MG/5 ML IV SYRINGE IV PRN ×2 (12:30)
[2018-06-14] MEDS ORDERED: LORAZEPAM 2 MG INJ IV PRN (12:30)
[2018-06-14] MEDS ORDERED: BUPIVACAINE 0.5%/EPI (SDV) 30 ML INJ ONE (14:04)
[2018-06-14] MEDS ORDERED: SUCCINYLCHOLINE CHLORIDE 100 MG/5 ML SYG IV ONE (15:02)
[2018-06-14] MEDS ORDERED: PROPOFOL 20 ML ONE (15:02)
[2018-06-14] MEDS ORDERED: LIDOCAINE 2% (SDV) 5 ML INJ ONE (15:02)
[2018-06-14] MEDS ORDERED: ONDANSETRON 4 MG INJ ONE (15:02)
[2018-06-14] MEDS ORDERED: ROCURONIUM 50 MG INJ ONE (15:02)
[2018-06-14] MEDS ORDERED: ROPIVACAINE 0.5 % 30 ML VIAL ONE (15:05)
[2018-06-14] MEDS ORDERED: HYDROCODONE/APAP (5/325) TAB PO PRN ×2 (15:30)
[2018-06-14] MEDS ORDERED: IBUPROFEN 600 MG TAB PO PRN (15:30)
--- NOTE | 2018-06-14 15:35 | OPR ---
Date/Time of Note Date/Time of Note DATE: 06/14/18 TIME: 15:28 Operative Report Procedure Date: Jun 14, 2018 Preoperative Diagnosis Biliary dyskinesia Postoperative Diagnosis 1. Biliary dyskinesia 2. Peritoneal adhesions Operation/Procedure Performed 1. Laparoscopic cholecystectomy 2. Laparoscopic lysis of adhesions Surgeon see signature line [employer]er [employer] Blender Avel Granger MD Anesthesia Type: general Anesthesiologist: MASOOD MARTIN MD Estimated Blood Loss: minimal Transfusion none Specimen Gallbladder Grafts/Implants none Complications none Pt Condition Post Procedure: stable Disposition: PACU Indications The patient is a 42-year-old female with a history of fibromyalgia who presented to the office with complaints of right upper quadrant abdominal pain. The patient had clinical signs and symptoms suspicious for biliary disease. An ultrasound was done which did not show gallstones. She subsequently had a HIDA scan which showed an ejection fraction of 11%. Diagnosis of biliary dyskinesia was made. The patient was scheduled for laparoscopic cholecystectomy; possible open. All risks and benefits of the procedure including but not limited to: Wound infection, excessive bleeding, common bile duct injury, postoperative biliary leak, retained common bile duct stone, injury to intra-abdominal organs, conversion to open procedure, possible need for subsequent surgeries, etc. were all explained to the patient in full detail. We also discussed the fact that cholecystectomy may not completely resolve her symptoms of right upper quadrant abdominal pain. She fully understood and wished to proceed with the procedure. Informed consent was therefore obtained. Procedure Description The patient was brought to the operating room and placed supine on the operating table. Bilateral sequential compression devices were placed on both lower extremities. A dose of broad-spectrum perioperative intravenous antibiotics was given. After the induction of smooth general endotracheal anesthesia the patient's abdomen was prepped and draped in the standard surgical fashion. After performance of the surgical timeout a 5 mm incision was made in the inferior umbilicus and a Veress needle was used to access the intra-abdominal cavity atraumatically. Pneumoperitoneum was then obtained and the Veress needle was exchanged for a 5 mm trocar through which a 5 mm laparoscope was placed. Three further working ports were then placed a 12 mm port in the sub-xiphoid region and two 5 mm ports in the right upper quadrant. All port sites were anesthetized with 0.25% Marcaine with epinephrine prior to incision. Diagnostic laparoscopy showed adhesions of the right colon to the lateral abdominal wall and of the omentum to just inferior to the umbilicus. Laparoscopic lysis of adhesions was performed. Using atraumatic graspers the gallbladder was grasped and retracted superiorly and laterally exposing the area of Collins's pouch. Dissection was begun in this area using a combination of blunt dissection and hook electrocautery. The cystic duct was identified as it entered straight into the neck of the gallbladder. It was dissected free of surrounding tissues and clipped proximally and distally x 3 and transected using EndoShears. Dissection was then continued posteriorly. The cystic artery was identified and dissected free of surrounding tissues. It too was clipped proximally and distally x 3 and transected using EndoShears. The gallbladder was then dissected off the liver bed using electrocautery. Once completely free the gallbladder was placed in an Endo Catch bag and withdrawn through the subxiphoid port site and passed off the field as specimen. Hemostasis was then inspected for and noted to be total. Pneumoperitoneum was then released and all trochars were withdrawn under direct vision. The fascia of the subxiphoid port site was reapproximated using 0 Vicryl sutures in [id number] fashion. The subcutaneous tissues were irrigated with warm normal saline and further local anesthesia was applied around the skin of the incision sites. The skin was then reapproximated using 4-0 Monocryl sutures in subcuticular fashion. The incisions were cleaned and Dermabond was applied to the incisions and the patient was awoken from anesthesia and transported to the recovery room in stable condition. A tap block was performed by the anesthesiologist at the conclusion of the procedure and will be documented separately by him. All counts were correct at the end of the case x 2. KATI VENTURA MD Jun 14, 2018 15:35
[2018-06-14] MEDS: HYDROmorphONE 1 MG/5 ML IV SYRINGE IV PRN ×2 (16:02→16:15)
--- NOTE | 2018-06-14 17:30 | PAC ---
Date/Time of Note Date/Time of Note DATE: 06/14/18 TIME: 17:30 Post-Anesthesia Notes Post-Anesthesia Note Last documented vital signs Vital Signs Date Temp Pulse Resp B/P (MAP) Pulse Ox O2 O2 Flow FiO2 Time Delivery Rate 06/14/18 97.4 94 18 137/78 88 17:15 (97) 06/14/18 Room Air 17:02 06/14/18 2.0 16:27 Activity: WNL Respiratory function: WNL Cardiovascular function: WNL Mental status: Baseline Pain reasonably controlled: Yes Hydration appropriate: Yes Nausea/Vomiting absent: Yes MASOOD MARTIN MD Jun 14, 2018 17:30
== END 2018-06-14 18:58 | disposition home or self-care (01) ==
LOC: SDS 10:57
PROVIDERS: ATTEND Surgery
DX: K82.8 Other specified diseases of gallbladder (principal); K66.0 Peritoneal adhesions (postprocedural) (postinfection)
CPT/HCPCS: 47562; 88304; J1170; J1630; J2250; J2405; J2795; J3010; Z7512; Z7610